=== PATIENT | male | born 1945 | race Caucasian/White ===

== ENCOUNTER 2020-07-02 08:09 | Outpatient (CLI) | payer MEDICARE, SELFPAY ==
--- NOTE | 2020-07-02 08:16 | ECG_ITS ---
Measurements Intervals [place] Rate: 68 P: 54 LA: 204 QRS: 63 QRSD: 118 T: 33 QT: 413 QTc: 439 Interpretive Statements SINUS RHYTHM ATRIAL PREMATURE COMPLEX BORDERLINE AV CONDUCTION DELAY INTRAVENTRICULAR CONDUCTION DELAY DELAYED PRECORDIAL R/S TRANSITION BORDERLINE T WAVE ABNORMALITY- INFERIOR LEADS BASELINE ARTIFACT- I, II, III, AVR, AVL, AVF, V1 BORDERLINE ECG Electronically Signed On 07-02-2020 8:38:07 [employer] by Leonidas Gonzalez D.O.
== END 2020-07-02 08:10 | disposition home or self-care (01) ==
PROVIDERS: Visit Provider Urology
DX: Z01.818 Encounter for other preprocedural examination (principal); C61 Malignant neoplasm of prostate; E78.00 Pure hypercholesterolemia, unspecified; I45.9 Conduction disorder, unspecified
CPT/HCPCS: 87086; 93005

== ENCOUNTER 2020-07-02 08:42 | Outpatient (CLI) | payer MEDICARE, SELFPAY ==
[2020-07-02 09:12] LABS: Basophils Absolute Auto 0.1 K/mm3 (0.0-0.1); Basophils Percent Auto 0.7 % (0.2-1.2); Eosinophils Absolute Auto 0.1 K/mm3 (0-0.3); Eosinophils Percent Auto 1.2 % (0-4.4); Hematocrit 43.3 % (42.0-52.0); Hemoglobin 14.4 g/dL (14.0-18.0); Immature Granulocyte Absolute 0.06 K/mm3 (0.00-0.031); Immature Granulocyte Percent A 0.8 % (0-0.5); Lymphocytes Absolute Auto 2.94 K/mm3 (0.9-3.2); Lymphocytes Percent Auto 38.4 % (18.3-44.2); Mean Corpuscular HGB Conc 33.3 g/dl (32-36); Mean Corpuscular Hemoglobin 29.6 pg (26-34); Mean Corpuscular Volume 89.1 fl (80-100); Mean Platelet Volume 8.2 fl (7.4-10.4); Monocytes Absolute Auto 0.6 K/mm3 (0.1-0.6); Monocytes Percent Auto 7.3 % (2.6-8.5); Neutrophils Percent Auto 51.6 % (45.5-73.1); Platelet Count Result 277 k/mm3 (150-375); Red Blood Count 4.86 M/mm3 (4.6-6.20); Red Cell Distribution Width 12.8 % (11.5-14.5); White Blood Count 7.7 K/mm3 (4.5-10.0)
[2020-07-02 09:27] LABS: Alanine Aminotransferase 21 U/L (4-50); Albumin Level 4.3 g/dL (3.5-5.1); Alkaline Phosphatase 58 U/L (38-126); Anion Gap 7 mmol/L (8-16); Aspartate Amino Transferase 33 U/L (17-59); Bilirubin,Total 0.6 mg/dL (0.2-1.3); Blood Urea Nitrogen 18 mg/dL (9-20); Calcium 9.3 mg/dL (8.4-10.2); Carbon Dioxide 30 mmol/L (22-30); Chloride 103 mmol/L (98-107); Cholesterol 178 mg/dL (0-200); Estimated Glomerular Filt Rate 59; Glucose 115 mg/dL (75-110); HDL Direct 54 mg/dL; Potassium 4.2 mmol/L (3.4-5.0); Sodium 140 mmol/L (137-145); Triglycerides 99 mg/dL (<150)
[2020-07-02 09:38] LABS: LDL Cholesterol Direct 98 mg/dL
== END 2020-07-02 08:43 | disposition home or self-care (01) ==
DX: E03.9 Hypothyroidism, unspecified (principal); E78.00 Pure hypercholesterolemia, unspecified
CPT/HCPCS: 36415; 80053; 80061; 84443; 85025

== ENCOUNTER 2020-07-03 00:50 | Outpatient (CLI) | payer MEDICARE, SELFPAY ==
[2020-07-03 20:16] LABS: SARS-CoV-2 RNA PCR Negative
== END 2020-07-03 00:51 | disposition home or self-care (01) ==
LOC: ANHCOVIDDT 00:50
PROVIDERS: Visit Provider Urology
DX: Z01.818 Encounter for other preprocedural examination (principal); Z20.828 Contact with and (suspected) exposure to other viral communicable diseases
CPT/HCPCS: 87635; C9803; U0003

== ENCOUNTER 2020-07-06 01:13 | Day surgery (SDC) | payer MEDICARE, SELFPAY ==
[2020-06-30 11:07] VITALS: BMI 30.7
[2020-07-06] VITALS (7 sets, daily range): BP systolic 114–141; BP diastolic 65–81; PULSE 61–81; RESP 14–20; TEMP 36.3–36.8; O2SAT 98–100
[2020-07-06] MEDS: LACTATED RINGERS 1,000 ML 30 ML IV CONT ×2 (12:00→14:42)
--- NOTE | 2020-07-06 13:18 | WPDANESEPPF ---
Anes - Initial Pre Proc Eval Procedure: Operation Date: 07/06/20 13:15 Proposed Procedures p Insertion SpaceOAR Hydrogel System - Daniele Oneil MD Date/Time: 07/06/20 13:18 Surgeon: Daniele Oneil MD Pre Op Diagnosis: prostate CA Patient Data Age: 75 Gender: M Height: 1.8 m Weight: 101.6 kg Last Vital Signs Temp 36.8 C 07/06/20 11:46 Pulse 81 07/06/20 11:46 Resp 20 07/06/20 11:46 BP 132/81 07/06/20 11:46 Pulse Ox 98 07/06/20 11:46 Allergies Allergy/AdvReac Type Severity Reaction Status Date / Time No Known Allergies Allergy Verified 07/06/20 11:46 Home Medications Medication Instructions Recorded Confirmed Type diphenhydramine-acetaminophen 2 tablet PO HS PRN 06/30/20 07/06/20 History [Tylenol PM Extra Strength] levothyroxine 50 mcg PO QAM 06/30/20 07/06/20 History rosuvastatin 10 mg PO HS 06/30/20 07/06/20 History Patient hx anesthesia problems: none Family hx anesthesia problems: none PMFSH Past Medical History Medical History (Updated 07/06/20 @ 08:10 by Oliver Al DO) Hyperlipidemia Hypothyroidism FILOMENA (obstructive sleep apnea) CPAP Osteoarthritis Prostate cancer Social History Social History Smoking packs per day: 1 Smoking cigarettes per day: 20.0 Years smoked: 27 Smoking pack-years: 27.00 Smoking status: Former smoker Smoking end date: 01/20/95 Alcohol intake: current Drinks per week: 7 Substance use: never Living arrangements: with family Spiritual care concerns: No Anes - Eval Final PreProcedure Day of Procedure 07/06/20 13:18 Patient weight: obese Heart: regular rate and rhythm Lungs: clear to auscultation and normal air movement Airway: Mallampati scale class II Neurological: alert and oriented Last oral intake: >/= 8 hours ASA classification: III Emergent: no Anesthetic plan: proceed Anesthesia type and monitoring: general LMA and standard monitoring Informed Consent: The patient's anesthetic plan and its attendant risks and benefits were discussed with the patient/family/POA. Questions were solicited and answers provided to the satisfaction of the patient/family/POA.
--- NOTE | 2020-07-06 13:20 | WPDHPUPDATE1 ---
History and Physical Update Update Date/Time: 07/06/20 13:20 History and Physical has been reviewed, including an updated exam of the patient. There are NO changes in the patient's condition. Risks, benefits, and alternatives have been discussed and questions answered. Patient agrees to proceed with procedure. Proceed [facility] space oar
[2020-07-06] MEDS: ceFAZolin 2 GM/D5W 50 ML 2 GM/50 ML BAG IVPB (14:12)
--- NOTE | 2020-07-06 14:38 | PM.PROC ---
Procedure Note - Detailed Date of procedure: 07/06/20 Pre-op diagnosis: prostate CA Post-op diagnosis: same Procedure performed: TRUS and Space Oar Description of procedure: Patient is taken to the operative suite and correctly identified. Once anesthesia was obtained was placed in dorsal lithotomy position prepped draped usual sterile fashion. Transrectal ultrasound was then performed. The prostate was visualized in both planes. Spinal needle was inserted in the perineal region under direct vision. It was placed in the space between the prostate and the rectum. Tumor cc of saline was injected to confirm its placement and separation. This was verified in both planes. We then exchanges for the mixture which was prepared. This was then injected under direct vision. There was good separation noted. Patient tolerated procedure well without complication is taken recovery room stable condition. Anesthesia: GETA Surgeon: Daniele Oneil MD Drains: No Packing: No Pathology: none sent Complications: No immediate complications Condition: stable Disposition: PACU
== END 2020-07-06 16:15 | disposition home or self-care (01) ==
PROVIDERS: Visit Provider Urology
PROC: (CPT 55874; principal; 2020-07-06 13:15)
DX: C61 Malignant neoplasm of prostate (principal); E78.5 Hyperlipidemia, unspecified; E03.9 Hypothyroidism, unspecified; G47.33 Obstructive sleep apnea (adult) (pediatric); Z87.891 Personal history of nicotine dependence; E66.9 Obesity, unspecified; Z68.31 Body mass index [BMI] 31.0-31.9, adult
CPT/HCPCS: 55874; 36415; 80053; 80061; 84443; 85025; 87086; 87635; 93005; C1889; C9803; J0330; J0690; J1100; J2405; J2704; J3010; J7120; U0003